=== PATIENT | male | born 1985 | race African-American/Black ===

== ENCOUNTER 2018-01-13 08:19 | Day surgery (SDC) | payer OTHER ==
[2018-01-12 20:29] VITALS: BMI 31.0
[~2018-01-13 08:19] MED LIST: BUPIVACAINE HCL/PF 0.5% (5MG/ML) 10 ML VIAL IJ ONE
--- NOTE | 2018-01-13 09:43 | HP ---
History & Physical Update - History History: No Change - Physical Physical: No Change - Assessment Assessment: No Change - Plan Plan: No Change (Large ventral/umbilical hernia , incarcerated, for repair. Risks explained , of infection , recurrence , pain, flap necrosis,. Consent obtained. He has a thick scar on his left forearm from tattoo. He is made aware of the risk for hypertrophieed scar.)
[2018-01-13] MEDS ORDERED: ONDANSETRON 4 MG/2 ML VIAL IVPUSH PRN (09:54)
[2018-01-13] MEDS ORDERED: PROMETHAZINE HCL 25 MG/1 ML VIAL IVPB PRN (09:54)
[2018-01-13] MEDS ORDERED: oxyCODONE HCL 5 MG TABLET PO PRN (09:54)
[2018-01-13] MEDS ORDERED: LACTATED RINGERS SOLUTION 1,000 ML IV SCH (10:00)
[2018-01-13] MEDS ORDERED: MIDAZOLAM HCL 2 MG/2 ML SINGLE DOSE VIAL ONE (10:22)
[2018-01-13] MEDS ORDERED: fentaNYL CITRATE 250 MCG/5 ML VIAL ONE (10:23)
[2018-01-13] MEDS ORDERED: PROPOFOL 20 ML ONE (10:28)
[2018-01-13] MEDS ORDERED: ROCURONIUM BROMIDE 50 MG/5 ML VIAL ONE ×2 (10:28→11:11)
[2018-01-13] MEDS ORDERED: ceFAZolin SODIUM 1 GM VIAL IVPB ONE ×2 (10:31)
[2018-01-13] MEDS ORDERED: GLYCOPYRROLATE 0.2 MG/1 ML VIAL ONE (12:22)
[2018-01-13] MEDS ORDERED: ceFAZolin SODIUM 1 GM VIAL ONE (12:22)
[2018-01-13] MEDS ORDERED: NEOSTIGMINE METHYLSULFATE 0.5 MG/ML - 10 ML MDV ONE (12:22)
[2018-01-13] MEDS ORDERED: KETOROLAC TROMETHAMINE 30 MG/1 ML VIAL ONE (12:22)
[2018-01-13] MEDS ORDERED: LIDOCAINE HCL/PF 2% SDV 5ML VIAL ONE (12:22)
[2018-01-13] MEDS ORDERED: DEXAMETHASONE SOD PHOSPHATE 4 MG/1 ML VIAL ONE (12:22)
[2018-01-13] MEDS ORDERED: BUPIVACAINE HCL/PF 0.5% (5MG/ML) 10 ML VIAL IJ ONE (12:35)
--- NOTE | 2018-01-13 12:50 | OP ---
Operative Note - Note: Operative Date: 01/13/18 Pre-Operative Diagnosis: Incarcerated ventral hernia. Operation: Repair of incarcerated ventral hernia with mesh. Findings: Large ventral hernia , involving the umbilicus, multiple defects. Defect repaired with 9 cm. symbotex mesh. Implants: Symbotex mesh. Post-Operative Diagnosis: Other (Multiple midline hernia.) Surgeon: Ruchi Winston Coach Driver: Leonardo Campbell Anesthesia: General Specimens Removed: Hernial sac and contents of hernia. Estimated Blood Loss (mls): 10 Operative Report Dictated: Yes
--- NOTE | 2018-01-13 12:55 | SURG ---
Surgery Blade Operator Note Blade Operator: Leonardo Campbell PA-C Date of Service: 01/13/18 Diagnosis: Incarcerated ventral hernia. Procedure: Repair of incarcerated ventral hernia with mesh. I was present for the entirety of the operative procedure. For further detail, please refer to operative report. Visit type - Case Type Case Type: Scheduled - New patient This patient is new to me today: Yes Date on this admission: 01/13/18
--- NOTE | 2018-01-13 14:18 | OP ---
DATE OF OPERATION: 01/13/2018 PREOPERATIVE DIAGNOSIS: Large ventral hernia around the umbilicus. PREOPERATIVE DIAGNOSIS: Large 6 cm in diameter multiple defect around and about the umbilicus. OPERATIVE PROCEDURE: Repair of incarcerated ventral hernia with Symbotex Mesh. SURGEON: aMite Winston MD ORDER DESK CALLER: FREDERICK Lynne and medical student. ANESTHESIA: General anesthesia. OPERATIVE DESCRIPTION: This 33-year-old man who is obese had a large hernia in the midline of the abdomen. Patient was seen 2 months earlier. He decided to go to [facility] and come back and get operated. He was seen in the office yesterday, and his hernia appeared to be larger. It was not reducible. It was incarcerated. Patient was brought in for repair of the hernia with mesh. Consent was obtained. Risks , benefits, and complications had been discussed with the patient. Patient was given general anesthesia. A time-out was called. A curvilinear incision, a semicircular incision, was made below the umbilicus 2- 3 fingers away from the umbilicus. The incision was deepened through the skin and subcutaneous tissue and fat all the way to the anterior rectus sheath. Patient was given a gram of Ancef prior to the procedure. Superior skin flaps were then placed between the subcutaneous fat and the anterior rectus sheath all the way above the umbilicus on either side for about 2-3 cm. A flap was then placed around the hernia defect and the sac. There was a large white 6 cm in diameter sac protruding through the defect. This was carefully from the skin. Flap was then raised above the umbilicus in the epigastrium about 4-5 cm. There was another defect in the epigastrium besides the large defect in the umbilical level. The flap was then raised 2-3 cm above the defect. The sac was then divided. There was no intestinal contents through the sac. It was circumferentially divided, , and the neck of the sac was suture ligated with 2-0 Vicryl sutures. The distal portion was divided and sent as specimen. The preperitoneal fat was also protruding through the defect. This was also divided at the umbilicus and above the abdominal wall and sent to Pathology. The peritoneum was then circumferentially from the undersurface of the abdominal wall circumferentially and about 3-4 cm away from the edges. This was also from the midline defect superiorly. When this was done, a 9-cm Symbotex Mesh was placed into this defect. It was anchored to the undersurface of the abdominal wall 2 cm away from the defect above and below and on either side with 2-0 Prolene sutures passed through the abdominal wall the outer part, went through and through the mesh 2 cm from the edge and was brought out through the abdomen by introducing it through the defect and through the abdominal wall. Four such sutures obtained, one above and below and on either side of the midline. Mesh was then introduced into the defect and held against the abdominal wall. The Prolene suture was tied, thus anchoring the mesh on the undersurface of the abdominal wall. This was done with 3-0 Prolene sutures. The edge of the defect was then again anchored to the mesh with interrupted 2-0 Vicryl sutures. The mesh was adequately placed as an inlay mesh under the abdominal defects. Once this was done, the flap over the anterior abdominal wall was approximated over the defect. Once this was done, the hernial sac attached to the skin was brought down and attached to the edge of the defect, thus anchoring the skin to the abdominal wall. The wound was irrigated thoroughly. Hemostasis was satisfactory. There was no bleeding. Bleeding vessels were cauterized and suture ligated. Subcutaneous fat was then approximated with buried interrupted 2-0 Vicryl sutures, the subcutaneous tissues approximated with buried interrupted 3-0 Vicryl sutures, and skin approximated with continuous 4-0 Monocryl sutures in a running subcuticular fashion. Marcaine 0.5% was injected into the wound and into the abdominal wall. Dermabond was applied across the skin edges. A pressure dressing was applied over the umbilicus, and umbilical skin, by filling the defect or depression with 4x4 gauze. Sterile dressings were applied. Estimated blood loss was less than 10 mL. Patient tolerated the procedure well, was extubated and sent to the recovery room in satisfactory and stable condition. Abdominal binder was also placed. Michael [id number] cc: The office of . LAURI
[2018-01-13 16:03] VITALS: TEMP 98.2
[2018-01-13 17:57] VITALS: BP 118/76; PULSE 94
--- NOTE | 2018-01-16 12:46 | PATH ---
Surgical Pathology Report Patient Name: ADIS OBYER [facility]. Rec. #: [id number] /Age/Gender: 1985 (Age: 33) / M Account: [id number] Location: [facility] SUR[facility]ICAL Taken: 01/13/2018 Received: 01/13/2018 Reported: 01/16/2018 Physicians: Maite Winston M.D. Specimen(s) Received HERNIA SAC AND CONTENTS Clinical History Incarcerated umbilical hernia Final Diagnosis HERNIA SAC AND CONTENTS, OPEN REPAIR OF INCARCERATED UMBILICAL HERNIA WITH MESH: MESOTHELIAL LINED FIBROMEMBRANOUS AND FIBROADIPOSE TISSUE CONSISTENT WITH HERNIA SAC. Electronically Signed Catina Fernandez M.D. Gross Description Received in formalin labeled "hernia sac and contents," is a 7.0 x 5.8 x 3.2 cm portion of hart-pink fibromembranous tissue with attached fat, consistent with a hernia sac. A sales solutions representative section is submitted in one cassette. /01/13/201801/13/2018
== END 2018-01-13 17:30 | disposition home or self-care (01) ==
LOC: JASU-SURG 08:19
PROVIDERS: ATTEND Specialist
PROC: 0WUF0JZ Supplement Abdominal Wall with Synthetic Substitute, Open Approach (ICD-10-PCS; principal; 2018-01-13 09:30)
DX: K43.6 Other and unspecified ventral hernia with obstruction, without gangrene (principal); E66.9 Obesity, unspecified
CPT/HCPCS: 88302-TC; 94760

== ENCOUNTER 2018-02-02 19:39 | Inpatient (IN) | payer OTHER ==
--- NOTE | 2018-02-02 19:46 | PDOC ---
Rapid Medical Evaluation Chief Complaint: Wound Time Seen by Provider: 02/02/18 19:41 Medical Evaluation: Allergies Allergy/AdvReac Type Severity Reaction Status Date / Time No Known Allergies Allergy Verified 12/31/11 13:35 02/02/18 19:41 s/p umbilical hernia repair 1 month ago, wound not heeling with drainage since surgery. increased drainge for the past 7 days. denies fever/ chill PE; Patient alert ox3, + tenderness and edema to abdomen. warm to touch A: surgical wound evaluation P; labs, blood culture patient to the ER for further management of care. Discharge Disposition - Diagnosis Encounter for evaluation of wound - Referrals - Patient Instructions - Post Discharge Activity
[2018-02-02] MEDS ORDERED: CEFOXITIN SODIUM 1 GM in DEXTROSE 5%-WATER - 100 ML IVPB ONE (20:39)
[2018-02-02] MEDS ORDERED: SODIUM CHLORIDE 0.9% 1000 ML INFUS.BAG IV ONE (20:40)
[2018-02-02 22:21] LABS: BASO % 0.4 % (0-2.0); EOS % 0.5 % (0-4.5); HEMATOCRIT 40.7 % (35.4-49); HEMOGLOBIN 13.4 GM/dL (11.7-16.9); LYMPH % 20.2 % (8-40); MCH 27.8 pg (25.7-33.7); MCHC 32.9 g/dl (32.0-35.9); MEAN CELL VOLUME 84.5 fl (80-96); MEAN PLT VOLUME 8.4 fl (7.5-11.1); MONO % 11.6 % (3.8-10.2); NEUT % 67.3 % (42.8-82.8); PLATELET COUNT 303 K/MM3 (134-434); RBC 4.81 M/mm3 (4.00-5.60); WHITE BLOOD COUNT 9.5 K/mm3 (4.0-10.0)
[2018-02-02 22:34] LABS: INR 1.12 (0.83-1.09); PROTHROMBIN TIME (PATIENT) 12.6 SEC (9.7-13.0)
[2018-02-02 22:36] LABS: ACTIVATED PTT 26.6 SECONDS (25.2-36.5)
[2018-02-02 22:44] LABS: ALBUMIN 3.3 g/dl (3.4-5.0); ALK PHOS 87 U/L (45-117); ANION GAP 8 (8-16); BILIRUBIN,TOTAL 0.6 mg/dL (0.2-1.0); BLOOD UREA NITROGEN 11 mg/dL (7-18); CHLORIDE 102 mmol/L (98-107); CO2 29 mmol/L (21-32); CREATININE 1.1 mg/dL (0.7-1.3); GLUCOSE,RANDOM 86 mg/dL (74-106); SGOT/AST 18 U/L (15-37); SGPT/ALT 19 U/L (12-78); SODIUM 139 mmol/L (136-145)
--- NOTE | 2018-02-02 22:51 | PDOC ---
History of Present Illness <Princess Manzano - Last Filed: 02/03/18 00:23> - General History Source: Patient, Old Records Exam Limitations: No Limitations - History of Present Illness Initial Comments: 02/03/18 00:30 Patient is a 33 year old male with a significant past medical history of Gerd, who presents to the ED with complaints of abdominal pain that began earlier today. Patient reports having hernia repair on january 13, with Dr. Winston. He reports experiencing gradual abdominal pain as well as wound discharge from his incision site, prompting him to go to see his surgeon this afternoon. Patient reports being advised to come into the ED for further evaluation of incision site. He reports wound has been discharging more frequently with an associated pungent odor. Patient reports changing his bandages every hour. Denies chest pain, Sob. Denies nausea, vomiting. Denies contact with sick individuals, out of state travelling. Denies fevers, chills. Denies dysuria, hematuria. Denies diarrhea, constipation. Denies any other symptoms. Allergies: None Social history: Lives with . No smoking. No alcohol. No illicit drugs. Surgical history: Repair of incarcerated ventral hernia PMD: Dr. Abarca General Surgeon: Dr. Rica Winston. <Antonino Palomares - Last Filed: 02/03/18 00:30> - General Chief Complaint: Wound Stated Complaint: PCP ADMIT Time Seen by Provider: 02/02/18 19:41 Past History - Past Medical History Anemia: No Asthma: No Cancer: No Cardiac Disorders: Yes (? " floater"- all cardiology workup negative.) CVA: No COPD: No CHF: No Dementia: No Diabetes: No GI Disorders: Yes (ACID REFLUX) Disorders: No HTN: No Hypercholesterolemia: No Liver Disease: No Seizures: No Thyroid Disease: No - Surgical History Abdominal Surgery: No Appendectomy: No Cardiac Surgery: No Cholecystectomy: No GI Surgery: Yes (HERNIA) Lung Surgery: No Neurologic Surgery: No Orthopedic Surgery: No - Suicide/Smoking/Psychosocial Hx Smoking Status: No Smoking History: Never smoked Number of Cigarettes Smoked Daily: 0 Hx Alcohol Use: Yes (social) Drug/Substance Use Hx: No Substance Use Type: None Hx Substance Use Treatment: No <Princess Manzano - Last Filed: 02/03/18 00:23> <Antonino Palomares - Last Filed: 02/03/18 00:30> - Past Medical History Allergies/Adverse Reactions: Allergies Allergy/AdvReac Type Severity Reaction Status Date / Time No Known Allergies Allergy Verified 02/02/18 19:44 Home Medications: Ambulatory Orders Ibuprofen [Motrin] 400 mg PO QID PRN 01/11/12 Calcium Carb/Magnesium Hydrox [Rolaids Chewable Tablet] 1 each PO PRN PRN Ibuprofen [Motrin -] 400 mg PO QID #28 tablet 01/13/18 L.acidoph,Paracasei, B.lactis [Probiotic] 1 each PO DAILY 01/13/18 Oxycodone HCl/Acetaminophen [Percocet 5-325 mg Tablet] 1 tab PO Q6H #20 tablet MDD 4 01/13/18 Review of Systems - Review of Systems Able to Perform ROS?: Yes Comments:: 02/03/18 00:30 GENERAL/CONSTITUTIONAL: No fever or chills. No weakness. HEAD, EYES, EARS, NOSE AND THROAT: No change in vision. No ear pain or discharge. No sore throat. GASTROINTESTINAL: No nausea, vomiting, diarrhea or constipation. GENITOURINARY: No dysuria, frequency, or change in urination. CARDIOVASCULAR: No chest pain or shortness of breath. RESPIRATORY: No cough, wheezing, or hemoptysis. MUSCULOSKELETAL: +Abdominal pain. No joint or muscle swelling. No neck or back pain. SKIN: +Abdominal wound. NEUROLOGIC: No headache, vertigo, loss of consciousness, or change in strength/ sensation. ENDOCRINE: No increased thirst. No abnormal weight change. HEMATOLOGIC/LYMPHATIC: No anemia, easy bleeding, or history of blood clots. ALLERGIC/IMMUNOLOGIC: No hives or skin allergy. <Antonino Palomares - Last Filed: 02/03/18 00:30> *Physical Exam - Vital Signs Last Vital Signs Temp Pulse Resp BP Pulse Ox 98.7 F 94 H 18 97/46 98 02/02/18 19:41 02/02/18 19:41 02/02/18 19:41 02/02/18 19:41 02/02/18 19:41 <Princess Manzano - Last Filed: 02/03/18 00:23> - Vital Signs Last Vital Signs Temp Pulse Resp BP Pulse Ox 98.7 F 94 H 18 97/46 98 02/02/18 19:41 02/02/18 19:41 02/02/18 19:41 02/02/18 19:41 02/02/18 19:41 - Physical Exam Comments: 02/03/18 00:30 GENERAL: Awake, alert, and fully oriented, in no acute distress HEAD: No signs of trauma EYES: PERRLA, EOMI, sclera anicteric, conjunctiva clear ENT: Auricles normal inspection, hearing grossly normal, nares patent, oropharynx clear without exudates. Moist mucosa NECK: Normal ROM, supple, no lymphadenopathy, JVD, or masses LUNGS: Breath sounds equal, clear to auscultation bilaterally. No wheezes, and no crackles HEART: +Tachycardic, Regular rhythm, normal S1 and S2, no murmurs, rubs or gallops ABDOMEN: +Open at the inferior aspect of the incision. +2.5 cm length pirulin drainage with odor. Soft, nontender, normoactive bowel sounds. No guarding, no rebound. No masses EXTREMITIES: Normal range of motion, no edema. No clubbing or cyanosis. No cords, erythema, or tenderness NEUROLOGICAL: Cranial nerves II through XII grossly intact. Normal speech, normal gait SKIN: Warm, Dry, normal turgor, no rashes or lesions noted. <Antonino Palomares - Last Filed: 02/03/18 00:30> ED Treatment Course - LABORATORY CBC & Chemistry Diagram: 02/02/18 22:02 02/02/18 22:02 - ADDITIONAL ORDERS Additional order review: Laboratory Results 02/02/18 02/02/18 22:02 22:02 PT with INR 12.60 INR 1.12 H PTT (Actin FS) 26.6 Sodium 139 Potassium 4.0 Chloride 102 Carbon Dioxide 29 Anion Gap 8 BUN 11 Creatinine 1.1 Creat Clearance w eGFR > 60 Random Glucose 86 Calcium 9.0 Total Bilirubin 0.6 AST 18 D ALT 19 D Alkaline Phosphatase 87 Total Protein 8.0 Albumin 3.3 L 02/02/18 22:02 RBC 4.81 MCV 84.5 MCHC 32.9 RDW 14.0 MPV 8.4 Neutrophils % 67.3 Lymphocytes % 20.2 D Monocytes % 11.6 H Eosinophils % 0.5 Basophils % 0.4 - RADIOLOGY Radiology Studies Ordered: Category Date Time Status ABDOMEN & PELVIS CT WITH CONTR [CT] Stat CT Scan 02/02/18 20:27 Ordered - Medications Given in the ED: ED Medications Discontinued Medications Generic Name Dose Route Start Last Admin Trade Name Freq PRN Reason Stop Dose Admin Cefoxitin Sodium 1 gm/ 100 mls @ 200 mls/hr 02/02/18 20:39 02/02/18 22:29 Dextrose IVPB 02/02/18 21:08 200 mls/hr ONCE ONE Administration Protocol <Princess Manzano - Last Filed: 02/03/18 00:23> - LABORATORY CBC & Chemistry Diagram: 02/02/18 22:02 02/02/18 22:02 - ADDITIONAL ORDERS Additional order review: Laboratory Results 02/02/18 02/02/18 22:02 22:02 PT with INR 12.60 INR 1.12 H PTT (Actin FS) 26.6 Sodium 139 Potassium 4.0 Chloride 102 Carbon Dioxide 29 Anion Gap 8 BUN 11 Creatinine 1.1 Creat Clearance w eGFR > 60 Random Glucose 86 Calcium 9.0 Total Bilirubin 0.6 AST 18 D ALT 19 D Alkaline Phosphatase 87 Total Protein 8.0 Albumin 3.3 L 02/02/18 22:02 RBC 4.81 MCV 84.5 MCHC 32.9 RDW 14.0 MPV 8.4 Neutrophils % 67.3 Lymphocytes % 20.2 D Monocytes % 11.6 H Eosinophils % 0.5 Basophils % 0.4 - Medications Given in the ED: ED Medications Discontinued Medications Generic Name Dose Route Start Last Admin Trade Name Freq PRN Reason Stop Dose Admin Cefoxitin Sodium 1 gm/ 100 mls @ 200 mls/hr 02/02/18 20:39 02/02/18 22:29 Dextrose IVPB 02/02/18 21:08 200 mls/hr ONCE ONE Administration Protocol Sodium Chloride 1,000 ml 02/02/18 20:40 02/03/18 00:20 Normal Saline - IV 02/02/18 20:41 1,000 ml ONCE ONE Administration <Antonino Palomares - Last Filed: 02/03/18 00:30> Medical Decision Making - Medical Decision Making 02/02/18 23:01 a/p: 33yo male s/p ventral hernia repair sent by Dr. Winston for eval of ventral hernia repair site that has dehisced with purulent drainage -concern for poss abscess intraabd -purulent drainage -seen by Dr. Winston in the office and sent for labs, cultures, ct abd/pelvis with IV contrast -induration to incision site, warmth to site, no erythema, purulent drainage, wound dehisences -will send labs, cultures, ct abd/pelvis -will start iv abx -will discuss ct results iwth Dr. Winston -will need admission pending further eval 02/03/18 00:16 ct shows an 11x5.6x8.6cm collection in the fatty tissues of the anterior abdominal wall at the supraumbilical region with gas bubbles in it call placed to Dr. Winston to update him on the ct findings abx already started 02/03/18 00:[address] Winston who will admit the patient to his service pt updated on labs and imaging results. agrees to stay for further eval <Princess Manzano - Last Filed: 02/03/18 00:23> *DC/Admit/Observation/Transfer - Discharge Dispostion Decision to Admit order: Yes - Attestations Physician Attestion: 02/03/18 00:19 I, Dr. Princess Manzano DO, attest that this document has been prepared under my direction and personally reviewed by me in its entirety. I further attest, that it accurately reflects all work, treatment, procedures and medical decision -making performed by me. <Princess Manzano - Last Filed: 02/03/18 00:23> - Attestations Scribe Attestion: 02/03/18 00:30 Documentation prepared by Antonino Palomares, acting as medical art therapist for Princess Manzano DO. <Antonino Palomares - Last Filed: 02/03/18 00:30> Diagnosis at time of Disposition: Encounter for evaluation of wound, Surgical wound dehiscence, Abdominal wall abscess at site of surgical wound - Referrals Referrals: Connor Abarca MD [Primary Care Provider] - - Patient Instructions - Post Discharge Activity
--- NOTE | 2018-02-03 09:10 | CONSULT ---
Consult Consult Specialty:: Surgery Reason for Consultation:: Postoperative drainage from abdominal wound. - History of Present Illness Chief Complaint: C/O Drainage from incision site, s/p repair of ventral and umbilical hernia with symbotex , composite mesh on 01/13/2018, 9 ncm in diameter. History of Present Illness: He had repair of incarcerated ventral and umbilical hernia on 01/13/2018. He returns to the office yesterday , c/o drainage from the left corner of the incision . No foul smell. - History Source History Provided By: Patient Limitations to Obtaining History: No Limitations - Past Surgical History Past Surgical History: Yes: Hernia Repair (Ventral and umbilical hernia with mesh on 01/13/2018.) - Alcohol/Substance Use Hx Alcohol Use: Yes (social) - Smoking History Smoking history: Never smoked Aproximately how many cigarettes per day: 0 Home Medications - Allergies Allergies/Adverse Reactions: Allergies Allergy/AdvReac Type Severity Reaction Status Date / Time No Known Allergies Allergy Verified 02/02/18 19:44 - Home Medications Home Medications: Ambulatory Orders Ibuprofen [Motrin] 400 mg PO QID PRN 01/11/12 Calcium Carb/Magnesium Hydrox [Rolaids Chewable Tablet] 1 each PO PRN PRN Ibuprofen [Motrin -] 400 mg PO QID #28 tablet 01/13/18 L.acidoph,Paracasei, B.lactis [Probiotic] 1 each PO DAILY 01/13/18 Oxycodone HCl/Acetaminophen [Percocet 5-325 mg Tablet] 1 tab PO Q6H #20 tablet MDD 4 01/13/18 Review of Systems - Review of Systems Constitutional: reports: Other (Obese.) Physical Exam Vital Signs: Vital Signs Temperature 98.4 F 02/03/18 05:54 Pulse Rate 77 02/03/18 05:54 Respiratory Rate 20 02/03/18 05:54 Blood Pressure 119/67 02/03/18 05:54 O2 Sat by Pulse Oximetry (%) 99 02/03/18 05:59 Constitutional: Yes: Obese Gastrointestinal: Yes: Other (Abdomen : Recent surgical changes , with an incisional scar , around the inferior aspect of the umbilicus , 2cms, away from the umbilicus. On the left corner of the incision site , there is necrosis of the edge , about 0.5cm wide and about 3cms in length. There is pink fat at the edges. Necrotic skin seen. Rest of the abdomen , is not tenderm but with postop induration.) Labs: CBC, BMP 02/02/18 22:02 02/02/18 22:02 Imaging - Results Cat Scan: Report Reviewed, Image Reviewed (CT scan image reviewed with radiologist , there is uniform fluid collection under the skin , and above the mesh.) Problem List - Problems (1) Seroma after procedure Code(s): [id number] - (2) Surgical wound dehiscence Code(s): T81.31XA - DISRUPTION OF EXTERNAL OPERATION (SURGICAL) WOUND, NEC, INIT Qualifiers: Encounter type: initial encounter Qualified Code(s): T81.31XA - Disruption of external operation (surgical) wound, not elsewhere classified, initial encounter Assessment/Plan The edges of the wound is debrided, necrotic skin excised and sent for culture. Patient is informed of the complication , encountered at the surgical site of placement of the mesh. Informed of the plan to aspirate the fluid collection by IR. Infectious disease consult requested, Dr Abarca consult also requested. Continue IV antibiotics.
--- NOTE | 2018-02-03 15:08 | PN ---
Progress Note (short form) - Note Progress Note: ID Consult dictated R/O infected abdominal wall seroma/ abscess S/P repair ventral/ umbilical hernia with mesh 01/13/18 Pending c/s empiric vancomycin/ zosyn
[2018-02-03] MEDS: VANCOMYCIN 1 GM PREMIX - 1 GM/200 ML BAG IVPB SCH (16:35)
--- NOTE | 2018-02-03 17:12 | PN ---
Progress Note, Physician - Current Medication List Current Medications: Active Medications Piperacillin Sod/Tazobactam (Sod 4.5 gm/ Dextrose) 100 mls @ 200 mls/hr IVPB Q8H-IV JESSICA; Protocol Vancomycin HCl (Vancomycin 1 Gm Premix -) 1 gm in 200 mls @ 133.333 mls/hr IVPB Q12H JESSICA; Protocol Last Admin: 02/03/18 16:35 Dose: 133.333 mls/hr - Objective Vital Signs: Vital Signs Temperature 98.6 F 02/03/18 15:00 Pulse Rate 87 02/03/18 15:00 Respiratory Rate 18 02/03/18 15:00 Blood Pressure 113/69 02/03/18 15:00 O2 Sat by Pulse Oximetry (%) 100 02/03/18 11:47 Labs: CBC, BMP 02/02/18 22:02 02/02/18 22:02 INR, PTT INR 1.12 (0.83-1.09) H 02/02/18 22:02 Problem List - Problems (1) Seroma after procedure Code(s): [id number] - (2) Surgical wound dehiscence Code(s): T81.31XA - DISRUPTION OF EXTERNAL OPERATION (SURGICAL) WOUND, NEC, INIT Qualifiers: Encounter type: initial encounter Qualified Code(s): T81.31XA - Disruption of external operation (surgical) wound, not elsewhere classified, initial encounter Assessment/Plan Drainage noted , discussed with Dr. Stringer. Fluid drained, Chocolate brown color, ? alterd blood, ? infected fluid. Will wait for culture. patient is made aware. Continue antibiotics.
--- NOTE | 2018-02-03 17:15 | CONS ---
DATE OF CONSULTATION: DATE OF DICTATION: 02/03/2018 INFECTIOUS DISEASE CONSULTATION HISTORY OF PRESENT ILLNESS: The patient is a 33-year-old male who underwent a repair of a large incarcerated ventral and umbilical hernia with mesh on January 13, 2018. He reports that postoperatively, there was wound drainage, it became progressively worse. Over the past week or so, he noted marked increase in the drainage, which became malodorous. He reports changing the dressings on an hourly basis. He saw his surgeon in followup and was referred to the emergency room for further evaluation. In the emergency room, a CAT scan was performed of the abdomen and pelvis, and within the anterior abdominal wall at the level of the umbilicus was a large irregular fluid collection measuring roughly 12 x 5 x 9 cm with a small amount of air within the collection suspicious for abscess. Inflammatory changes were noted around the collection. The patient was taken to interventional radiology where a drainage catheter was placed. Turbid brown fluid is noted in the Lawrence-Melton drain. At the present time, he has no complaints of abdominal pain. He has not had significant abdominal pain. He denies any associated fever or chills. PAST MEDICAL HISTORY: Positive for gastroesophageal reflux. No known allergies. LABORATORY DATA: White count 9.5, hematocrit 40.7, platelet count 303, BUN 8, creatinine 1.1, liver enzymes normal. PHYSICAL EXAMINATION: General: On exam, he is awake and alert, not acutely toxic appearing. Vital signs: Temperature 98.4, blood pressure 113/70, pulse 84 regular, respirations 18 per minute. HEENT: Sclerae anicteric. Cardiovascular: Heart sounds S1, S2. Lungs: Clear. Abdomen: Slightly distended. There is surgical wound which has healed, with the exception of a small area which is packed. There is a Lawrence-Melton drain present in the left abdomen with turbid brown fluid in the Lawrence-Melton drain. Extremities: Negative for edema. IMPRESSION: 1. Rule out infected abdominal wall seroma/abscess. 2. Status post repair of ventral/umbilical hernia with mesh. Await drainage cultures and blood culture. Empiric antibiotic coverage with vancomycin and Zosyn. Further recommendations pending cultures, surgical followup. NASRIN ZIMMER M.D. [id number]
[2018-02-03] MEDS ORDERED: PIPERACILLIN/TAZOBACTAM 4.5 GM VIAL IVPB ONE (17:32)
[2018-02-03] MEDS ORDERED: DEXTROSE 5%-WATER 100 ML IVPB ONE (17:33)
[2018-02-03] MEDS: PIPERACILLIN/TAZOB 4.5 GM 4.5 GM in DEXTROSE 5%-WATER 100 ML IVPB SCH (17:41)
[2018-02-03] MEDS ORDERED: diphenhydrAMINE HCL 25 MG CAPSULE (FP) PO ONE (18:15)
[2018-02-04] MEDS ORDERED: DEXTROSE 5%-WATER 100 ML IVPB ONE ×3 (00:42→18:48)
[2018-02-04] MEDS ORDERED: PIPERACILLIN/TAZOBACTAM 4.5 GM VIAL IVPB ONE ×3 (00:42→18:48)
[2018-02-04] MEDS: PIPERACILLIN/TAZOB 4.5 GM 4.5 GM in DEXTROSE 5%-WATER 100 ML IVPB SCH ×3 (01:45→18:54)
[2018-02-04 08:38] LABS: BASO % 0.4 % (0-2.0); HEMATOCRIT 39.6 % (35.4-49); HEMOGLOBIN 12.9 GM/dL (11.7-16.9); LYMPH % 26.3 % (8-40); MCHC 32.6 g/dl (32.0-35.9); MEAN PLT VOLUME 8.5 fl (7.5-11.1); MONO % 11.3 % (3.8-10.2); PLATELET COUNT 290 K/MM3 (134-434); RDW 13.8 % (11.9-15.9); WHITE BLOOD COUNT 6.6 K/mm3 (4.0-10.0)
--- NOTE | 2018-02-04 12:38 | PN ---
Progress Note, Physician - Current Medication List Current Medications: Active Medications Piperacillin Sod/Tazobactam (Sod 4.5 gm/ Dextrose) 100 mls @ 200 mls/hr IVPB Q8H-IV JESSICA; Protocol Last Admin: 02/04/18 09:18 Dose: 200 mls/hr Vancomycin HCl (Vancomycin 1 Gm Premix -) 1 gm in 200 mls @ 133.333 mls/hr IVPB Q12H JESSICA; Protocol Last Admin: 02/03/18 16:35 Dose: 133.333 mls/hr - Objective Vital Signs: Vital Signs Temperature 97.9 F 02/04/18 10:28 Pulse Rate 76 02/04/18 10:28 Respiratory Rate 18 02/04/18 10:28 Blood Pressure 111/66 02/04/18 10:28 O2 Sat by Pulse Oximetry (%) 100 02/04/18 09:00 Labs: CBC, BMP 02/04/18 07:05 02/02/18 22:02 INR, PTT INR 1.12 (0.83-1.09) H 02/02/18 22:02 Problem List - Problems (1) Seroma after procedure Code(s): [id number] - (2) Surgical wound dehiscence Code(s): T81.31XA - DISRUPTION OF EXTERNAL OPERATION (SURGICAL) WOUND, NEC, INIT Qualifiers: Encounter type: initial encounter Qualified Code(s): T81.31XA - Disruption of external operation (surgical) wound, not elsewhere classified, initial encounter Assessment/Plan Surgery: Patient is afebrile, comfortable. Wound with 50 ml of drainage, CultureL lactose fermenting , Gram negative bacilli. Continue antibiotics. Attempt to salvage the mesh repair. Will need long-term antibiotics.
--- NOTE | 2018-02-04 16:13 | PN ---
Progress Note, Physician History of Present Illness: Awake, alert Supine in bed No c/o abdominal pain No fever/ chills Developed "red-man" syndrome after vanco, relieved with benadryl WBC WNL Abdominal drainage c/s LF - Current Medication List Current Medications: Active Medications Piperacillin Sod/Tazobactam (Sod 4.5 gm/ Dextrose) 100 mls @ 200 mls/hr IVPB Q8H-IV JESSICA; Protocol Last Admin: 02/04/18 09:18 Dose: 200 mls/hr Vancomycin HCl (Vancomycin 1 Gm Premix -) 1 gm in 200 mls @ 133.333 mls/hr IVPB Q12H JESSICA; Protocol Last Admin: 02/03/18 16:35 Dose: 133.333 mls/hr - Objective Vital Signs: Vital Signs Temperature 99.1 F 02/04/18 15:18 Pulse Rate 91 H 02/04/18 15:18 Respiratory Rate 18 02/04/18 15:18 Blood Pressure 119/73 02/04/18 15:18 O2 Sat by Pulse Oximetry (%) 100 02/04/18 09:00 Constitutional: Yes: No Distress Eyes: Yes: Conjunctiva Clear Cardiovascular: Yes: Regular Rate and Rhythm, S1, S2 Respiratory: Yes: CTA Bilaterally Gastrointestinal: Yes: Normal Bowel Sounds, Soft, Other (Brownish fluid in KAYLEIGH drain. + Drainage on wound dressing). No: Tenderness Labs: CBC, BMP 02/04/18 07:05 02/02/18 22:02 INR, PTT INR 1.12 (0.83-1.09) H 02/02/18 22:02 Assessment/Plan Infected seroma/ abscess S/P ventral/ umbilical hernia repair await c/s Continue zosyn/ vancomycin
[2018-02-04] MEDS: diphenhydrAMINE HCL 25 MG CAPSULE (FP) PO SCH (16:35)
[2018-02-04] MEDS: VANCOMYCIN 1 GM PREMIX - 1 GM/200 ML BAG IVPB SCH (17:08)
[2018-02-05] MEDS ORDERED: PIPERACILLIN/TAZOBACTAM 4.5 GM VIAL IVPB ONE ×3 (00:46→18:12)
[2018-02-05] MEDS ORDERED: DEXTROSE 5%-WATER 100 ML IVPB ONE ×3 (00:46→18:12)
[2018-02-05] MEDS: PIPERACILLIN/TAZOB 4.5 GM 4.5 GM in DEXTROSE 5%-WATER 100 ML IVPB SCH ×3 (01:51→18:25)
[2018-02-05] MEDS: diphenhydrAMINE HCL 25 MG CAPSULE (FP) PO SCH ×2 (02:33→15:36)
[2018-02-05] MEDS: VANCOMYCIN 1 GM PREMIX - 1 GM/200 ML BAG IVPB SCH ×2 (03:08→16:21)
[2018-02-05] MEDS ORDERED: diphenhydrAMINE HCL 25 MG CAPSULE (FP) PO SCH (03:30)
--- NOTE | 2018-02-05 13:38 | PN ---
Progress Note, Physician - Current Medication List Current Medications: Active Medications Diphenhydramine HCl (Benadryl -) 25 mg PO BID@0330,1530 [facility] Last Admin: 02/05/18 02:33 Dose: 25 mg Piperacillin Sod/Tazobactam (Sod 4.5 gm/ Dextrose) 100 mls @ 200 mls/hr IVPB Q8H-IV JESSICA; Protocol Last Admin: 02/05/18 09:10 Dose: 200 mls/hr Vancomycin HCl (Vancomycin 1 Gm Premix -) 1 gm in 200 mls @ 133.333 mls/hr IVPB Q12H JESSICA; Protocol Last Admin: 02/05/18 03:08 Dose: 133.333 mls/hr - Objective Vital Signs: Vital Signs Temperature 97.4 F L 02/05/18 10:59 Pulse Rate 86 02/05/18 10:59 Respiratory Rate 18 02/05/18 10:59 Blood Pressure 122/75 02/05/18 10:59 O2 Sat by Pulse Oximetry (%) 100 02/05/18 09:00 Labs: CBC, BMP 02/04/18 07:05 02/02/18 22:02 INR, PTT INR 1.12 (0.83-1.09) H 02/02/18 22:02 Problem List - Problems (1) Seroma after procedure Code(s): [id number] - (2) Surgical wound dehiscence Code(s): T81.31XA - DISRUPTION OF EXTERNAL OPERATION (SURGICAL) WOUND, NEC, INIT Qualifiers: Encounter type: initial encounter Qualified Code(s): T81.31XA - Disruption of external operation (surgical) wound, not elsewhere classified, initial encounter Assessment/Plan Surgery: Patient is afebrile. Abdomen is soft, not tender. He is having normal bowel movements. Still has drainage from the drainage catheter , about 20 ml. Cultures are positive for e.coli. On Zosyn and vancomycin. Wound is pink , easily bleeding and granulating. Dressing changed. Patient is informed of the cultures and infected wound. He is informed of the possibilty of removal of mesh , if he does not respond to antibiotics. Will continue with antibiotics, see response , in terms of diminution of drainage and healing of the wound. No mesh is exposed. Postoperative infected collection following repair of ventral and umbilical hernia, with symbotex mesh. ID consult appreciated.
[2018-02-06] MEDS ORDERED: PIPERACILLIN/TAZOBACTAM 4.5 GM VIAL IVPB ONE ×2 (00:04→10:42)
[2018-02-06] MEDS ORDERED: DEXTROSE 5%-WATER 100 ML IVPB ONE ×2 (00:04→10:42)
[2018-02-06] MEDS: PIPERACILLIN/TAZOB 4.5 GM 4.5 GM in DEXTROSE 5%-WATER 100 ML IVPB SCH ×2 (01:52→10:47)
[2018-02-06] MEDS: diphenhydrAMINE HCL 25 MG CAPSULE (FP) PO SCH ×2 (02:40→15:47)
[2018-02-06] MEDS: VANCOMYCIN 1 GM PREMIX - 1 GM/200 ML BAG IVPB SCH ×3 (03:11→16:41)
--- NOTE | 2018-02-06 16:04 | PN ---
Progress Note, Physician - Current Medication List Current Medications: Active Medications Diphenhydramine HCl (Benadryl -) 25 mg PO BID@0330,1530 [facility] Last Admin: 02/06/18 15:47 Dose: 25 mg Piperacillin Sod/Tazobactam (Sod 4.5 gm/ Dextrose) 100 mls @ 200 mls/hr IVPB Q8H-IV JESSICA; Protocol Last Admin: 02/06/18 10:47 Dose: 200 mls/hr Vancomycin HCl (Vancomycin 1 Gm Premix -) 1 gm in 200 mls @ 133.333 mls/hr IVPB Q12H JESSICA; Protocol Last Admin: 02/06/18 03:11 Dose: 133.333 mls/hr - Objective Vital Signs: Vital Signs Temperature 98.1 F 02/06/18 10:33 Pulse Rate 88 02/06/18 10:33 Respiratory Rate 20 02/06/18 10:33 Blood Pressure 137/84 02/06/18 10:33 O2 Sat by Pulse Oximetry (%) 100 02/05/18 21:00 Labs: CBC, BMP 02/04/18 07:05 02/02/18 22:02 INR, PTT INR 1.12 (0.83-1.09) H 02/02/18 22:02 Problem List - Problems (1) Seroma after procedure Code(s): [id number] - (2) Surgical wound dehiscence Code(s): T81.31XA - DISRUPTION OF EXTERNAL OPERATION (SURGICAL) WOUND, NEC, INIT Qualifiers: Encounter type: initial encounter Qualified Code(s): T81.31XA - Disruption of external operation (surgical) wound, not elsewhere classified, initial encounter Assessment/Plan Surgery: Patient is still draining brownish material from the drain. Progressively diminishing drainage , but still a fair amount. Afebrile, not in pain. The open wound is pink and granulating well. No mesh exposure seen. Continue antibiotics. Patient is informed of the likelihood of removing the drain. attempt will be made to salvage the mesh repair, however if he drains a significant amount from the pig tail catheter , the mesh will have to be removed. Will obtain plastic surgery consult with Dr. Cabello. follow up abdominal CT scan without contrast tomorrow.
--- NOTE | 2018-02-06 16:41 | PN ---
Progress Note (short form) - Note Progress Note: seen in f/u still with drainage d/w Dr Winston - for ct scan in am Vital Signs Period Temp Pulse Resp BP Sys/Goode Pulse Ox Last 24 Hr 98.1 F-98.3 F 71-88 12-20 110-137/60-84 100 CBC, BMP 02/04/18 07:05 02/02/18 22:02 Microbiology 02/02/18 22:02 Blood - Peripheral Venous Blood Culture - Preliminary NO GROWTH OBTAINED AFTER 72 HOURS, INCUBATION TO CONTINUE FOR 2 DAYS. 02/02/18 22:02 Blood - Peripheral Venous Blood Culture - Preliminary NO GROWTH OBTAINED AFTER 72 HOURS, INCUBATION TO CONTINUE FOR 2 DAYS. 02/03/18 11:35 Abscess Gram Stain - Final 02/03/18 11:35 Abscess Body Fluid Culture - Final Escherichia Coli 02/03/18 11:35 Abscess Anaerobic Culture - Final NO ANAEROBES WERE ISOLATED 02/03/18 09:00 Wound Gram Stain - Final 02/03/18 09:00 Wound Wound Culture - Final Escherichia Coli a/p fluid collection growing ecoli d/c vanco/zosyn switch to cefazolin d/w Dr Winston for ct scan may need mesh removed
[2018-02-06] MEDS: CEFAZOLIN 2 GM/D5W 2 GM/50 ML ML IVPB SCH (18:45)
[2018-02-07] MEDS ORDERED: PT OWN MED DRAWER 7, Y5N ONE (00:53)
[2018-02-07] MEDS: CEFAZOLIN 2 GM/D5W 2 GM/50 ML ML IVPB SCH ×4 (01:28→19:52)
--- NOTE | 2018-02-07 15:32 | CONSULT ---
Consult Consult Specialty:: Plastic Surgery - Past Surgical History Past Surgical History: Yes: Hernia Repair (Ventral and umbilical hernia with mesh on 01/13/2018.) - Alcohol/Substance Use Hx Alcohol Use: Yes (social) - Smoking History Smoking history: Never smoked Aproximately how many cigarettes per day: 0 Home Medications - Allergies Allergies/Adverse Reactions: Allergies Allergy/AdvReac Type Severity Reaction Status Date / Time No Known Allergies Allergy Verified 02/02/18 19:44 - Home Medications Home Medications: Ambulatory Orders Ibuprofen [Motrin] 400 mg PO QID PRN 01/11/12 Calcium Carb/Magnesium Hydrox [Rolaids Chewable Tablet] 1 each PO PRN PRN Ibuprofen [Motrin -] 400 mg PO QID #28 tablet 01/13/18 L.acidoph,Paracasei, B.lactis [Probiotic] 1 each PO DAILY 01/13/18 Oxycodone HCl/Acetaminophen [Percocet 5-325 mg Tablet] 1 tab PO Q6H #20 tablet MDD 4 01/13/18 Physical Exam Vital Signs: Vital Signs Temperature 98.6 F 02/07/18 09:20 Pulse Rate 102 H 02/07/18 09:20 Respiratory Rate 20 02/07/18 09:20 Blood Pressure 126/78 02/07/18 09:20 O2 Sat by Pulse Oximetry (%) 98 02/06/18 10:45 Labs: CBC, BMP 02/04/18 07:05 02/02/18 22:02 Assessment/Plan 33 yo male with a history of an umbilical hernia that was repaired. Mesh was used (?Type). Patient subsequently developed a wound infection. Collection recognized on CT and a catheter was placed for drainage. Original repair done through a semi-circular infra-umbilical incision of which the left lateral third is now open. Physical exam reveals an indwelling catheter placed superior to the surgical incision. The abdomen is non-tender. The wound dressing was removed and the open wound is full thickness, communicating internally with the cavity containing the drainage catheter. A modest amount of drainage was noted on exploration of the wound. Suggest: Remove drainage catheter and manage wound by irrigation and packing. Consider exploration to remove mesh depending on type of mesh used. Discussed possible need to remove remove mesh with patient. Also discussed the need for wound care. Depending on status of underlying mesh might consider VAC therapy. Will discuss with Dr. Winston. Thank you.
--- NOTE | 2018-02-07 19:46 | PN ---
Progress Note, Physician - Current Medication List Current Medications: Active Medications Cefazolin Sodium/Dextrose (Ancef 2 Gm Premixed Ivpb -) 2 gm in 50 mls @ 100 mls /hr IVPB Q8H-IV JESSICA Last Admin: 02/07/18 18:42 Dose: Not Given - Objective Vital Signs: Vital Signs Temperature 98.8 F 02/07/18 18:00 Pulse Rate 82 02/07/18 18:00 Respiratory Rate 20 02/07/18 18:00 Blood Pressure 123/72 02/07/18 18:00 O2 Sat by Pulse Oximetry (%) 99 02/07/18 10:00 Labs: CBC, BMP 02/04/18 07:05 02/02/18 22:02 INR, PTT INR 1.12 (0.83-1.09) H 02/02/18 22:02 Problem List - Problems (1) Seroma after procedure Code(s): [id number] - (2) Surgical wound dehiscence Code(s): T81.31XA - DISRUPTION OF EXTERNAL OPERATION (SURGICAL) WOUND, NEC, INIT Qualifiers: Encounter type: initial encounter Qualified Code(s): T81.31XA - Disruption of external operation (surgical) wound, not elsewhere classified, initial encounter Assessment/Plan Surgery: Patient is still draining brownish material from the drain. Progressively diminishing drainage , 30ml in the kast 12 hours. Afebrile, not in pain. The open wound is pink and granulating well. No mesh exposure seen. Continue antibiotics. Patient is informed of the likelihood of removing the drain. Plastic surgery consult appreciated. I have discussed th problem with the patient , his mother and his family. Made aware of an infected collection under the skin, growing E . coli. In view of the drainage , consider removing the mesh , and let wound heal with secondary intention with possible biologic mesh bridging the wound. He is made aware , of the need for prolonged care , and management of the wound, with recurrence of the hernia. Continue antibiotics, he is on Cefazolin, as per ID. He was nauseous, after taking the contrast material. Ct scan shows no undrained collection, normal bowel, no intraabdominal collection. He is provisionally scheduled for removal of the mesh on Tuesday.
[2018-02-07] MEDS: ONDANSETRON 4 MG TABLET PO PRN (20:45)
[2018-02-08] MEDS: CEFAZOLIN 2 GM/D5W 2 GM/50 ML ML IVPB SCH ×3 (02:28→17:14)
[2018-02-08] MEDS: ONDANSETRON 4 MG TABLET PO PRN ×3 (06:12→19:48)
--- NOTE | 2018-02-08 19:54 | PN ---
Progress Note, Physician History of Present Illness: Patient is afebrile. Drainage down to 15 ml. surgical wound site is pink, clean Discussed with Dr. Cabello. Will try , wound vac and attempt salvaging the surgical repair of the hernia. Wound vac applied. Continue antibiotics. I have explained to the patient and his mother , about attempting to treat with antibiotics , and wound vac , in an effort to salvage the mesh and the repair. Will hold off on excision of the mesh. Continue antibiotics. Encourage oral feeding. - Current Medication List Current Medications: Active Medications Cefazolin Sodium/Dextrose (Ancef 2 Gm Premixed Ivpb -) 2 gm in 50 mls @ 100 mls /hr IVPB Q8H-IV JESSICA Last Admin: 02/08/18 17:14 Dose: 100 mls/hr Ondansetron HCl (Zofran -) 4 mg PO Q8H PRN PRN Reason: NAUSEA Last Admin: 02/08/18 19:48 Dose: 4 mg - Objective Vital Signs: Vital Signs Temperature 98.0 F 02/08/18 18:00 Pulse Rate 83 02/08/18 18:00 Respiratory Rate 20 02/08/18 18:00 Blood Pressure 135/77 02/08/18 18:00 O2 Sat by Pulse Oximetry (%) 99 02/08/18 09:00 Labs: CBC, BMP 02/04/18 07:05 02/02/18 22:02 INR, PTT INR 1.12 (0.83-1.09) H 02/02/18 22:02 Problem List - Problems (1) Seroma after procedure Code(s): [id number] - (2) Surgical wound dehiscence Code(s): T81.31XA - DISRUPTION OF EXTERNAL OPERATION (SURGICAL) WOUND, NEC, INIT Qualifiers: Encounter type: initial encounter Qualified Code(s): T81.31XA - Disruption of external operation (surgical) wound, not elsewhere classified, initial encounter
[2018-02-09] MEDS: CEFAZOLIN 2 GM/D5W 2 GM/50 ML ML IVPB SCH ×2 (01:48→09:42)
--- NOTE | 2018-02-09 08:49 | PN ---
Progress Note, Physician - Current Medication List Current Medications: Active Medications Cefazolin Sodium/Dextrose (Ancef 2 Gm Premixed Ivpb -) 2 gm in 50 mls @ 100 mls /hr IVPB Q8H-IV JESSICA Last Admin: 02/09/18 01:48 Dose: 100 mls/hr Ondansetron HCl (Zofran -) 4 mg PO Q8H PRN PRN Reason: NAUSEA Last Admin: 02/08/18 19:48 Dose: 4 mg - Objective Vital Signs: Vital Signs Temperature 99.4 F 02/09/18 06:00 Pulse Rate 90 02/09/18 06:00 Respiratory Rate 20 02/09/18 06:00 Blood Pressure 120/78 02/09/18 06:00 O2 Sat by Pulse Oximetry (%) 99 02/08/18 09:00 Labs: CBC, BMP 02/04/18 07:05 02/02/18 22:02 INR, PTT INR 1.12 (0.83-1.09) H 02/02/18 22:02 Problem List - Problems (1) Seroma after procedure Code(s): [id number] - (2) Surgical wound dehiscence Code(s): T81.31XA - DISRUPTION OF EXTERNAL OPERATION (SURGICAL) WOUND, NEC, INIT Qualifiers: Encounter type: initial encounter Qualified Code(s): T81.31XA - Disruption of external operation (surgical) wound, not elsewhere classified, initial encounter Assessment/Plan Surgery: Patient ios comfortable. Abdomen is soft , not tender. Drainage , 18 ml. Vac dressing in place. Will remove drainage catheter tomorrow. Continue antibiotics. Patient will stay until next change of VAC dressing. ID follow up. Follow blood work.
[2018-02-09 09:08] LABS: BASO % 0.4 % (0-2.0); EOS % 0.7 % (0-4.5); HEMATOCRIT 40.7 % (35.4-49); HEMOGLOBIN 13.2 GM/dL (11.7-16.9); LYMPH % 19.4 % (8-40); MCH 27.9 pg (25.7-33.7); MCHC 32.5 g/dl (32.0-35.9); MEAN CELL VOLUME 85.9 fl (80-96); MEAN PLT VOLUME 7.6 fl (7.5-11.1); MONO % 12.1 % (3.8-10.2); NEUT % 67.4 % (42.8-82.8); PLATELET COUNT 351 K/MM3 (134-434); RBC 4.74 M/mm3 (4.00-5.60); RDW 13.8 % (11.9-15.9); WHITE BLOOD COUNT 9.3 K/mm3 (4.0-10.0)
[2018-02-09] MEDS: ONDANSETRON 4 MG TABLET PO PRN (10:12)
--- NOTE | 2018-02-09 11:50 | PN ---
Progress Note (short form) - Note Progress Note: seen in f/u complianing of nausea with the antiibotics vomited after ancef today no abdominal pain +bm Vital Signs Period Temp Pulse Resp BP Sys/Goode Pulse Ox Last 24 Hr 97.9 F-99.4 F 76-95 18-20 120-137/71-80 cor-rrr lungs clear abd soft,nt +vac, +lacey drain ext no edema CBC, BMP 02/09/18 08:02 02/02/18 22:02 Microbiology 02/02/18 22:02 Blood - Peripheral Venous Blood Culture - Final NO GROWTH AFTER 5 DAYS INCUBATION 02/02/18 22:02 Blood - Peripheral Venous Blood Culture - Final NO GROWTH AFTER 5 DAYS INCUBATION 02/03/18 11:35 Abscess Gram Stain - Final 02/03/18 11:35 Abscess Body Fluid Culture - Final Escherichia Coli 02/03/18 11:35 Abscess Anaerobic Culture - Final NO ANAEROBES WERE ISOLATED 02/03/18 09:00 Wound Gram Stain - Final 02/03/18 09:00 Wound Wound Culture - Final Escherichia Coli a/p infected hematoma recent mesh for hernia repair now vomiting will switch to ceftriaxone plan per surgery is to try vac in an effort to salvage the mesh would like to treat half-way via picc line- patient is reluctant Dr Finn will return in am to d/w patient
[2018-02-09] MEDS ORDERED: PT OWN MED DRAWER 7, Y5N ONE (15:09)
[2018-02-09 15:16] VITALS: BMI 30.8
[2018-02-09] MEDS ORDERED: DEXTROSE 5%-WATER 100 ML IVPB ONE (15:52)
[2018-02-09] MEDS: CEFTRIAXONE 2 GM in DEXTROSE 5%-WATER 100 ML IVPB SCH (15:53)
[2018-02-10] MEDS ORDERED: DEXTROSE 5%-WATER 100 ML IVPB ONE (09:19)
[2018-02-10] MEDS: CEFTRIAXONE 2 GM in DEXTROSE 5%-WATER 100 ML IVPB SCH (09:34)
[2018-02-10] MEDS ORDERED: PICC LINE 8 ML FLUSH PROTOCOL IVPUSH PRN (12:31)
--- NOTE | 2018-02-10 12:37 | PN ---
Progress Note, Physician History of Present Illness: Awake, alert Supine in bed No c/o abdominal pain No fever/ chills No further nausea after switch to ceftriaxone WBC WNL Abdominal drainage c/s E coli - Current Medication List Current Medications: Active Medications IV Flush (Picc Line Flush) 8 ml IVPUSH PRN PRN PRN Reason: Protocol Ceftriaxone Sodium 2 gm/ (Dextrose) 100 mls @ 200 mls/hr IVPB DAILY JESSICA; Protocol Last Admin: 02/10/18 09:34 Dose: 200 mls/hr Ondansetron HCl (Zofran -) 4 mg PO Q8H PRN PRN Reason: NAUSEA Last Admin: 02/08/18 19:48 Dose: 4 mg - Objective Vital Signs: Vital Signs Temperature 97.8 F 02/10/18 09:30 Pulse Rate 86 02/10/18 09:30 Respiratory Rate 18 02/10/18 09:30 Blood Pressure 128/67 02/10/18 09:30 O2 Sat by Pulse Oximetry (%) 99 02/10/18 09:30 Constitutional: Yes: No Distress Eyes: Yes: Conjunctiva Clear Cardiovascular: Yes: Regular Rate and Rhythm, S1, S2 Respiratory: Yes: CTA Bilaterally Gastrointestinal: Yes: Normal Bowel Sounds, Soft, Other (VAC in place; small amt brownish fluid in KAYLEIGH drain). No: Tenderness Edema: No Labs: CBC, BMP 02/09/18 08:02 02/02/18 22:02 INR, PTT INR 1.12 (0.83-1.09) H 02/02/18 22:02 Assessment/Plan Infected seroma/ abscess E coli S/P ventral/ umbilical hernia repair Continue ceftriaxone 2gm IVPB q24h x 2weeks Will follow up in office
--- NOTE | 2018-02-10 20:41 | PN ---
Progress Note, Physician - Current Medication List Current Medications: Active Medications IV Flush (Picc Line Flush) 8 ml IVPUSH PRN PRN PRN Reason: Protocol Ceftriaxone Sodium 2 gm/ (Dextrose) 100 mls @ 200 mls/hr IVPB DAILY JESSICA; Protocol Last Admin: 02/10/18 09:34 Dose: 200 mls/hr Ondansetron HCl (Zofran -) 4 mg PO Q8H PRN PRN Reason: NAUSEA Last Admin: 02/08/18 19:48 Dose: 4 mg - Objective Vital Signs: Vital Signs Temperature 99.5 F 02/10/18 18:00 Pulse Rate 88 02/10/18 18:00 Respiratory Rate 20 02/10/18 18:00 Blood Pressure 108/63 02/10/18 18:00 O2 Sat by Pulse Oximetry (%) 99 02/10/18 09:30 Labs: CBC, BMP 02/09/18 08:02 02/02/18 22:02 INR, PTT INR 1.12 (0.83-1.09) H 02/02/18 22:02 Problem List - Problems (1) Seroma after procedure Code(s): [id number] - (2) Surgical wound dehiscence Code(s): T81.31XA - DISRUPTION OF EXTERNAL OPERATION (SURGICAL) WOUND, NEC, INIT Qualifiers: Encounter type: initial encounter Qualified Code(s): T81.31XA - Disruption of external operation (surgical) wound, not elsewhere classified, initial encounter Assessment/Plan Patient is afebrile, VAC dressing changed. Wound has almost approximated. PICC line placed. Continue antibiotiics Possible discharge in am.
[2018-02-11 07:52] VITALS: BP 117/72; PULSE 76; TEMP 98.5
[2018-02-11] MEDS ORDERED: DEXTROSE 5%-WATER 100 ML IVPB ONE (09:45)
[2018-02-11] MEDS: CEFTRIAXONE 2 GM in DEXTROSE 5%-WATER 100 ML IVPB SCH (09:49)
--- NOTE | 2018-02-11 13:18 | DS ---
Physical Examination Vital Signs: Vital Signs Temperature 98.5 F 02/11/18 07:51 Pulse Rate 76 02/11/18 07:51 Respiratory Rate 20 02/11/18 09:00 Blood Pressure 117/72 02/11/18 07:51 O2 Sat by Pulse Oximetry (%) 99 02/11/18 09:00 Gastrointestinal: Yes: Other (Abdominal wound is clean, abdomen is soft , not tender. Drain is in place, will be removed on Tuesday. S/P Repair of incarcerated ventral and umbilical hernia with mesh , followed by postoperative infection , abscess and partial dehiscence of the wound. He was treted with drainage of the pus, IV antibiotics, and wound dressing. He has had no fever or leucocytosis. He is being discharged with mcfp IV antibiotics, vis PICC line. Drainage catheter to be removed as out patient. Wound has almost approximated and healed.) Wound/Incision: Yes: Clean/Dry, Well Approximated Labs: CBC, BMP 02/09/18 08:02 02/02/18 22:02 Discharge Summary Reason For Visit: ABDOMINAL WALL ABCESS AT SITE OF SURGICAL WOUND Current Active Problems Abdominal wall abscess at site of surgical wound (Acute) Encounter for evaluation of wound (Acute) Seroma after procedure (Acute) Seroma infection, postoperative (Acute) Surgical wound dehiscence (Acute) Condition: Fair - Instructions Diet, Activity, Other Instructions: Usual diet, Antibiotics as per IV through PICC line, arrangements made. VAC dressing at home , may be a couple of times. Drain to be removed by IR on tuesday. Follow up in my office. patient understands the possibilty of prolonged therapy, and risk of continued infection of the graft. Current measures to save the surgical repair is working.' He will be followed in the office. Referrals: Juvenal Finn MD [Staff Physician] - Connor Abarca MD [Primary Care Provider] - Disposition: [facility]/HOME HEALTH CARE - Home Medications Comprehensive Discharge Medication List: Ambulatory Orders Ibuprofen [Motrin] 400 mg PO QID PRN 01/11/12 Calcium Carb/Magnesium Hydrox [Rolaids Chewable Tablet] 1 each PO PRN PRN Ibuprofen [Motrin -] 400 mg PO QID #28 tablet 01/13/18 L.acidoph,Paracasei, B.lactis [Probiotic] 1 each PO DAILY 01/13/18 Oxycodone HCl/Acetaminophen [Percocet 5-325 mg Tablet] 1 tab PO Q6H #20 tablet MDD 4 01/13/18
== END 2018-02-11 14:43 | disposition home health service (06) | DRG 721 ==
LOC: JER 19:39 → JERBED 02-03 00:19 → J5S 02-03 05:32
PROVIDERS: ADMIT Specialist; ATTEND Specialist
PROC: 2W13X6Z Compression of Abdominal Wall using Pressure Dressing (ICD-10-PCS; principal; 2018-02-08)
PROC: 02HV33Z Insertion of Infusion Device into Superior Vena Cava, Percutaneous Approach (ICD-10-PCS; 2018-02-10)
PROC: B518ZZA Fluoroscopy of Superior Vena Cava, Guidance (ICD-10-PCS; 2018-02-10)
PROC: B548ZZA Ultrasonography of Superior Vena Cava, Guidance (ICD-10-PCS; 2018-02-10)
DX: T81.4XXA Infection following a procedure, initial encounter (principal); T81.31XA Disruption of external operation (surgical) wound, not elsewhere classified, initial encounter; B96.29 Other Escherichia coli [E. coli] as the cause of diseases classified elsewhere; L76.34 Postprocedural seroma of skin and subcutaneous tissue following other procedure; Y83.8 Other surgical procedures as the cause of abnormal reaction of the patient, or of later complication, without mention of misadventure at the time of the procedure; K21.9 Gastro-esophageal reflux disease without esophagitis; E66.9 Obesity, unspecified; Z68.30 Body mass index [BMI] 30.0-30.9, adult
CPT/HCPCS: 10030; 36415; 36569; 74150-TC; 74177-TC; 77001-TC-FY; 80053; 85025; 85610; 85730; 87040; 87070; 87075; 87186; 87205; 87899; 99282-25; C1729; C1751; C1769; J7030

== ENCOUNTER → 2018-02-14 | Day surgery (SDC) | payer OTHER | END | disposition home or self-care (01) | LOC: JRADIR 12:44 | PROVIDERS: ATTEND Specialist | PROC: 0WPHX0Z Removal of Drainage Device from Retroperitoneum, External Approach (ICD-10-PCS; principal; 2018-02-14) | DX: K68.11 Postprocedural retroperitoneal abscess (principal) | CPT/HCPCS: 49424; 76000-TC-FY; 76080-TC-FY ==

== ENCOUNTER 2025-02-05 22:13 | Emergency (ER) | payer OTHER ==
[2025-02-05 22:30] VITALS: BP 149/98; PULSE 77; RESP 20; TEMP 97.7; BMI 30.1
[2025-02-05] MEDS ORDERED: LIDOCAINE HCL 2% (20ML MULTI-DOSE VIAL) ONE (23:15)
[2025-02-05] MEDS ORDERED: BUPIVACAINE HCL/PF 0.5% (5MG/ML) 10 ML VIAL ONE (23:16)
[2025-02-05] MEDS: BUPIVACAINE HCL/PF 0.5% (5 MG/ML) 30 ML VIAL IJ ONE (23:32)
[2025-02-05] MEDS: LIDOCAINE HCL 2% (50ML VIAL) SNB ONE (23:32)
== END 2025-02-05 23:38 | disposition home or self-care (01) ==
LOC: JER 22:13
PROC: 3E0T3BZ Introduction of Anesthetic Agent into Peripheral Nerves and Plexi, Percutaneous Approach (ICD-10-PCS; principal; 2025-02-05)
DX: R22.0 Localized swelling, mass and lump, head (principal); K08.89 Other specified disorders of teeth and supporting structures
CPT/HCPCS: 64400; 99283-25